=== PATIENT | female | born 1985 | race Caucasian/White ===

== ENCOUNTER 2021-01-22 13:11 | Observation (INO) ==
[2021-01-22] MEDS ORDERED: 0.9 % Sodium Chloride 1,000 ML IV ONE ×2 (13:15→14:32)
[2021-01-22 13:39] LABS: Basophils # 0.1 K/mcL (0.0-0.2); Eosinophils # 0.1 K/mcL (0.0-0.6); Eosinophils % 0.4 %; Hematocrit 43.8 % (35.3-44.9); Hemoglobin 14.2 g/dL (11.5-15.4); Immature Granulocytes % 0.4 % (0-4); Lymphocytes # 1.5 K/mcL (0.6-4.6); Lymphocytes % 12.8 %; Mean Corpuscular HGB Conc 32.4 g/dL (31.6-35.5); Mean Corpuscular Hemoglobin 29.6 pg (28.0-33.3); Mean Corpuscular Volume 91.3 fL (83.0-100.0); Mean Platelet Volume 9.6 fL (9.4-12.4); Monocytes # 0.4 K/mcL (0.0-1.3); Monocytes % 3.1 %; Neutrophils # 9.5 K/mcL (1.6-8.9); Platelet Count 438 K/mcL (140-400); Red Cell Distribution Width 13.2 % (11.5-14.5); Segmented Neutrophils % 82.3 %; White Blood Count 11.5 K/mcL (4.3-11.1)
[2021-01-22 13:46] LABS: Prothrombin Time 11.4 Seconds (9.4-12.1)
[2021-01-22 13:54] LABS: Alanine Aminotransferase 36 Units/L (7-52); Albumin 4.3 g/dL (3.5-5.7); Alkaline Phosphatase 132 Units/L (34-104); Amylase 22 Units/L (29-103); Aspartate Amino Transferase 31 Units/L (13-39); BUN/Creatinine Ratio 14 (6-26); Bilirubin,Total 0.5 mg/dL (0.3-1.0); Blood Urea Nitrogen 15 mg/dL (6-20); Calcium 9.9 mg/dL (8.6-10.3); Carbon Dioxide 16 mEq/L (23-29); Chloride 97 mEq/L (98-107); Globulin 4.1 g/dL (2.4-3.5); Glucose 365 mg/dL (70-105); Lipase 11 Units/L (11-82); Magnesium 1.9 mg/dL (1.6-2.6); Osmolality,Calculated 292 (280-300); Phosphorous 3.4 mg/dL (2.7-4.5); Potassium 3.9 mEq/L (3.5-5.1); Sodium 133 mEq/L (136-145); Total Protein 8.4 g/dL (6.4-8.9); eGFR For African Americans > 60 (> 60); eGFR For Non-African Americans 56 (> 60)
[2021-01-22 13:57] LABS: Troponin I < 0.03 ng/mL (< 0.04)
[2021-01-22 14:00] LABS: VBG HCO3 15 mEq/L (21-27); VBG PCO2 37 mmHg (41-51); VBG PH 7.22 pH Units (7.32-7.42); VBG PO2 51 mmHg (25-50)
[2021-01-22] MEDS ORDERED: Insulin Human Regular 10 UNIT in 0.9 % Sodium Chloride 10 ML IV ONE (14:32)
[2021-01-22 14:47] LABS: Bilirubin,Urine Small (Negative); Blood,Urine Negative (Negative); Clarity,Urine Clear (Clear); Color,Urine Yellow (Yellow); Glucose,Urine (UA) 500 mg/dL (Normal); Ketones,Urine >=160 mg/dL (Negative); Leukocyte Esterase,Urine Negative (Negative); Nitrite,Urine Negative (Negative); PH,Urine 5.5 pH Units (5.0-8.0); Protein,Urine Trace mg/dL (Neg-Trace); Specific Gravity,Urine >= 1.030 (1.010-1.025); Urobilinogen,Urine Normal (Normal)
[2021-01-22 15:00] LABS: Squamous Epithelial Cell,Urine Moderate per hpf (None-Few)
[2021-01-22] MEDS ORDERED: Ondansetron ODT 4 MG TAB.RAPDIS SL PRN (15:13)
[2021-01-22] MEDS ORDERED: Naloxone 0.4 MG/ML INJ IVP PRN (15:13)
[2021-01-22] MEDS ORDERED: Mag Hydrox/Al Hydrox/Simeth 30 ML UDC PO PRN (15:13)
[2021-01-22] MEDS ORDERED: Acetaminophen 325 MG TABLET PO PRN (15:13)
[2021-01-22] MEDS ORDERED: MOM Conc 10 ML UD.LIQ PO PRN (15:13)
[2021-01-22] MEDS ORDERED: Melatonin 3 MG TABLET PO PRN (15:13)
[2021-01-22] MEDS ORDERED: 0.9 % Sodium Chloride 1,000 ML IVC SCH (15:15)
[2021-01-22] MEDS ORDERED: *HR* Dextrose 50 % in Water (Vial) 50 ML VIAL IVP PRN (15:17)
[2021-01-22] MEDS ORDERED: Dextrose Gel 15 GM/37.5 ML TUBE PO PRN ×2 (15:17)
[2021-01-22] MEDS ORDERED: D5% in Water 1,000 ML IVC PRN (15:17)
[2021-01-22] MEDS ORDERED: Ergocalciferol (VIT D2) 50,000 UNIT (1.25MG) CAP PO SCH (15:30)
[2021-01-22] MEDS ORDERED: Loratadine 10 MG TABLET PO PRN (15:34)
[2021-01-22] MEDS: 0.9 % Sodium Chloride 1,000 ML IVC SCH ×2 (16:19→20:20)
[2021-01-22] MEDS: Insulin LISPRO 300 UNITS/3 ML VIAL SUBQ SCH ×2 (16:20→23:24)
[2021-01-22 18:30] LABS: BUN/Creatinine Ratio 16 (6-26); Blood Urea Nitrogen 11 mg/dL (6-20); Carbon Dioxide 16 mEq/L (23-29); Chloride 106 mEq/L (98-107); Glucose 202 mg/dL (70-105); Osmolality,Calculated 283 (280-300); Potassium 3.7 mEq/L (3.5-5.1); Sodium 134 mEq/L (136-145); eGFR For African Americans > 60 (> 60); eGFR For Non-African Americans > 60 (> 60)
[2021-01-22] MEDS: Pregabalin 50 MG CAPSULE PO SCH (20:13)
[2021-01-22 21:44] LABS: Estimated Average Glucose 229 mg/dl; Hemoglobin A1C 9.6 %
[2021-01-23] MEDS: 0.9 % Sodium Chloride 1,000 ML IVC SCH ×3 (00:25→15:35)
[2021-01-23] MEDS: Insulin LISPRO 300 UNITS/3 ML VIAL SUBQ SCH ×4 (00:42→17:59)
[2021-01-23 01:09] LABS: Amphetamine Screen,Urine Positive ng/mL (Cutoff=1000); Barbiturate Screen,Urine Negative ng/mL (Cutoff=200); Benzodiazepines Screen,Urine Negative ng/mL (Cutoff=200); Cannabinoid Screen,Urine Positive ng/mL (Cutoff = 50); Cocaine Screen,Urine Negative ng/mL (Cutoff= 300); Opiate Screen,Urine Negative ng/mL (Cutoff=300); Phencyclidine Screen,Urine Negative ng/mL (Cutoff=25)
[2021-01-23 05:16] LABS: Hematocrit 33.3 % (35.3-44.9); Mean Corpuscular Volume 90.7 fL (83.0-100.0); Mean Platelet Volume 9.4 fL (9.4-12.4); Platelet Count 300 K/mcL (140-400); Red Blood Count 3.67 M/mcL (3.82-4.97); Red Cell Distribution Width 13.2 % (11.5-14.5); White Blood Count 7.8 K/mcL (4.3-11.1)
[2021-01-23 05:33] LABS: Alanine Aminotransferase 22 Units/L (7-52); Albumin 2.8 g/dL (3.5-5.7); Albumin/Globulin Ratio 1.1 (1.1-2.2); Alkaline Phosphatase 78 Units/L (34-104); Aspartate Amino Transferase 24 Units/L (13-39); BUN/Creatinine Ratio 15 (6-26); Bilirubin,Total 0.5 mg/dL (0.3-1.0); Blood Urea Nitrogen 10 mg/dL (6-20); Calcium 7.8 mg/dL (8.6-10.3); Carbon Dioxide 12 mEq/L (23-29); Chloride 110 mEq/L (98-107); Globulin 2.6 g/dL (2.4-3.5); Glucose 219 mg/dL (70-105); Magnesium 1.6 mg/dL (1.6-2.6); Osmolality,Calculated 286 (280-300); Phosphorous 1.8 mg/dL (2.7-4.5); Potassium 3.8 mEq/L (3.5-5.1); Sodium 135 mEq/L (136-145); Total Protein 5.4 g/dL (6.4-8.9); eGFR For African Americans > 60 (> 60); eGFR For Non-African Americans > 60 (> 60)
[2021-01-23] MEDS ORDERED: *HR* Enoxaparin 40 MG/0.4 ML SYRINGE SQ SCH (06:00)
[2021-01-23] MEDS ORDERED: PARoxetine 10 MG TABLET PO SCH (09:00)
[2021-01-23] MEDS ORDERED: ARIPiprazole 10 MG TABLET PO SCH (09:00)
[2021-01-23] MEDS: Ondansetron 4 MG/2 ML VIAL IVP PRN ×2 (09:06→20:39)
[2021-01-23] MEDS: Pregabalin 50 MG CAPSULE PO SCH (09:21)
[2021-01-23 18:50] VITALS: BP 115/72
[2021-01-23] MEDS ORDERED: *HR* Promethazine 25 MG/ML VIAL IM PRN (21:36)
== END 2021-01-24 00:45 | disposition short-term general hospital (02) ==
LOC: INPGRE 13:11 → EMEROOGRE 13:11 → INPGRE 15:25
PROVIDERS: ADMIT Family Medicine; ATTEND Family Medicine